=== PATIENT | male | born 1995 | race Caucasian/White ===

== ENCOUNTER 2016-04-25 21:08 | Inpatient (IN) | payer OTHER ==
[~2016-04-25] VITALS: Ht 175.3 cm; Wt 64.6 kg
[2016-04-25 22:39] LABS: BASOPHILS 0.2 % (0.0-2.0); HEMATOCRIT 44.1 % (42.0-54.0); HEMOGLOBIN 16.1 g/dL (13.5-17.5); IMMATURE GRANULOCYTES 0.1 % (0-5); LYMPHOCYTES 25.5 % (15-50); MCH 31.9 pg (26.0-34.0); MCHC 36.5 g/dL (31.0-37.0); MCV 87.5 fL (80.0-100.0); MEAN PLATELET VOLUME 10.6 fL (7.4-10.4); MONOCYTES 6.7 % (2-11); NEUTROPHILS 66.5 % (40-80); PLATELET COUNT 185 10x3/uL (130-400); RBC 5.04 10x6/uL (4.20-6.10); RDW 12.9 % (11.5-14.5); WBC 8.4 10x3/uL (4.8-10.8)
[2016-04-25 22:50] LABS: ALBUMIN 4.7 g/dL (3.4-5.0); ALKALINE PHOSPHATASE 47 U/L (46-116); ALT (SGPT) 26 U/L (10-68); CALC OSMOLALITY 282 mosm/kg (275-300); CALCIUM 9.3 mg/dL (8.5-10.1); CARBON DIOXIDE 31.5 mmol/L (21.0-32.0); CHLORIDE - SERUM 103 mmol/L (98-107); GLUCOSE 85 mg/dL (74-106); POTASSIUM - SERUM 4.2 mmol/L (3.5-5.1); PROTEIN - SERUM 7.4 g/dL (6.4-8.2); SODIUM 142 mmol/L (136-145); UREA NITROGEN 14 mg/dL (7-18); eGFR NON AFRICAN AMERICAN > 90 mL/min (90-120)
[2016-04-25 23:30] VITALS: BP 109/71
--- NOTE | 2016-04-25 23:35 | NUR ---
2335: Pt admitted from ER via STR and placed in room 2305 at this time. All monitors and alarms established.
[2016-04-25] MEDS ORDERED: PAXIL10 MG PO (23:38)
[2016-04-25 23:43] VITALS: BP 109/71; Ht 175.3 cm; Wt 64.6 kg
[2016-04-26] VITALS (25 sets, daily range): BP systolic 78–111; BP diastolic 43–80
--- NOTE | 2016-04-26 | NUR ---
0000: Admission assessment complete. Pt states he took 15 Paxil pills around 9pm last night (04/25) because his girlfriend broke up with him. Pt states he would like to have some help and agrees to transfer/admission to a [facility] facility. Pt states he is not currentley suicidal, but does not know how the night will go. Pt agrees to notify nurse if he begins having suicidal thoughts. Pt is cooperative and conversive during assessment.
--- NOTE | 2016-04-26 01:00 | NUR ---
0100: Pt up to bedside commode with steady gait. Pt states he is having stomach cramps.
--- NOTE | 2016-04-26 01:30 | NUR ---
0130: Pt up OOB with multiple BMs. Assisted pt up to commode and back to bed without incident.
--- NOTE | 2016-04-26 02:50 | NUR ---
0250: Pt resting with eyes open at this time. Pt remains oriented, conversive, and cooperative at this time.
--- NOTE | 2016-04-26 04:30 | NUR ---
0430: Pt resting with eyes closed at this time. Pt remains SR on CM 60's with SBP >100. Pt remains on RA with SPO2 97%.
--- NOTE | 2016-04-26 05:30 | NUR ---
0530: Pt continues with frequent black liquid stools. Pt up to bedside commode with steady gait. Pt remains SR 60's on CM with SBP >100. Pt remains on RA iwth SPO2 98%.
--- NOTE | 2016-04-26 06:00 | NUR ---
0600: Pt resting with eyes closed at this time.
--- NOTE | 2016-04-26 07:00 | NUR ---
REC'ED REPORT FROM OUT GOING RN
--- NOTE | 2016-04-26 08:14 | NUR ---
ASSESSMENT COMPLETE - ASSISTED PT TO BSC - PT VOICED NO CONCERNS AT THIS TIME.
--- NOTE | 2016-04-26 08:55 | NUR ---
MOTHER (MS. AUTUMN JAY) CALLED - ASKED PT'S PERMISION TO SPEAK TO HER. PT AGREED TO ALLOW THIS RN TO SPEAK TO MOTHER AND TO GIVE HER HIS PASSWORD (KITTY). PT ASKED IF SHE COULD CALL HIM - EXPLAINED THAT DUE TO HIS CONDITION OF SI THAT NO PHONE CALLS NOR VISITORS ARE ALLOW - THIS POLICY IS IN PLACE TO PROTECT THE PT FROM BEING UPSET, ETC. PT VERBALIZED UNDERSTANDING. SPOKE TO MS. JAY - STATED PT HAS BEEN IN RESIDENTAL CARE SINCE HE WAS 4 YEARS OLD FOR ANGER ISSUES. (NAMED 8 DIFFERENT [facility] PSYCHI[facility]RIC FACILITIES) MS. JAY STATED THE PT IS A 'RUNNER' - PT HAS HISTORY OF WALKING OUT OF RESIDENTIAL FACILITIES. MS JAY STATED PT USES [facility] IN [place], [place] [phone] - ASKED UNIT SEC TO CALL FOR MAR TO BE FAXED TO UPDATE PT'S MEDICATION LIST. CONTINUE POC.
--- NOTE | 2016-04-26 09:50 | NUR ---
PT RESTING WITH EYES CLOSED - RESPIRATIONS REG RATE AND RHYTHM CONT POC
--- NOTE | 2016-04-26 10:18 | NUR ---
SPOKE TO PHARMD, [facility] - WHO AGREED TO FAX OVER PT'S MAR. REC'D ONE MED PAXIL 20MG ONCE A DAY WILL ENTER INTO MAR.
[2016-04-26] MEDS ORDERED: PAXIL20 MG PO (10:22)
--- NOTE | 2016-04-26 11:00 | NUR ---
DR. PHIPPS AT BEDSIDE FOR ASSEESSMENT - INFORMED MD OF PT'S FREQUENT INPATIENT PSYCH ADMISSIONS R/T ANGER AND THE POSSIBLITY OF ELOPEMENT. ENTERED [facility] CONSULT FOR PLACEMENT.
--- NOTE | 2016-04-26 12:00 | NUR ---
EASILTY AWAKENED BY TACTILE STIMULATION.
--- NOTE | 2016-04-26 12:00 | NUR ---
PT RESTING WITH EYES CLOSED - RESPIRATION REG RATE AND RYTHM
--- NOTE | 2016-04-26 13:07 | NUR ---
SPOKE WITH [facility] - INFORMED OF DR. KRAFT'S CONSULT FOR PLACEMENT 'PT MEDICALLY STABLE'. SHAKEEL LINDSEY HAS NOT ASSESSED PT AT THIS TIME. VERIFIED POISION CONTROL HAS BEEN NOTIFIED - PER ER DOCUMENTATION - POISION CONTROL WAS NOTIFIED. PT RESTING WITH EYE CLOSED - RESPRIATIONS REG RATE AND RHYTHM. CONT. POC.
--- NOTE | 2016-04-26 14:30 | NUR ---
SET UP BATH FOR PT - PT BATHED AND TRANSFERRED TO RECLINER - PT ASKED TO TALK TO HIS MOTHER. EXPLAINED THE POLICY IS TO PROTECT PT FROM ANY OUTSIDE IRRIATION. HOWEVER; PT CAN DISCUSS THIS WITH [facility] . PT VERBALIZED UNDERSTANDING.
--- NOTE | 2016-04-26 15:00 | NUR ---
ASSESSMENT COMPLETE - PT RESTING WITH EYE CLOSED - RESPIRATION REG RATE AND RHYTHM. PT EASILTY AWAKEN BY TACTILE STIMULI.
[2016-04-26 15:45] LABS: APPEARANCE CLEAR (CLEAR); BILIRUBIN NEGATIVE (NEGATIVE); COLOR YELLOW (YELLOW); GLUCOSE NEGATIVE (NEGATIVE); KETONE NEGATIVE (NEGATIVE); LEUKOCYTE ESTERASE NEGATIVE (NEGATIVE); NITRITE NEGATIVE (NEGATIVE); PROTEIN NEGATIVE (NEGATIVE); UROBILINOGEN NORMAL (NORMAL)
[2016-04-26 15:53] LABS: UDS - AMPHET NEGATIVE QUAL (NEGATIVE); UDS - BARB NEGATIVE QUAL (NEGATIVE); UDS - BENZO NEGATIVE QUAL (NEGATIVE); UDS - COCAINE NEGATIVE QUAL (NEGATIVE); UDS - METH NEGATIVE QUAL (NEGATIVE); UDS - OPIATE NEGATIVE QUAL (NEGATIVE); UDS - PCP NEGATIVE QUAL (NEGATIVE); UDS - THC NEGATIVE QUAL (NEGATIVE)
--- NOTE | 2016-04-26 17:15 | NUR ---
PT RESTING IN BED - EYE CLOSED - RESPIRATIONS REGULAR RATE AND RHYTHM.
--- NOTE | 2016-04-26 18:43 | NUR ---
PT RESTING WITH EYES CLOSED - RESP REG RATE RHYTHM. CONT POC
--- NOTE | 2016-04-26 19:00 | NUR ---
1900: Pt awake, alert, and oriented. Pt denies pain, tingling, numbness, nausea, and/or vomitting. Pt states his stomach feels much better than previous shift. Pt denies suicidal thoughts at this time and is calm and cooperative. Pt states he will notify nurse if "anything changes." Pt remains breathing RA with RR16x with SPO2 98%. Lungs clear bilat with auscultation. MMP and no cyanosis noted. Pt S1S2 SR 60's on CM with SBP 100's and Temp 98.8 Temporal. PPPx4=bilat. ABD soft NT BSx4 active. Pt denies difficulty with elimination. SR up x2, call light in reach and pt demonstrates use. Pt remains visible from nurses station. Discussed fall risk with patient and verbalized understanding. Pt requests that RN call "mother" and allow her to visit. Pts mother called, but no answer at this time.
--- NOTE | 2016-04-26 22:45 | NUR ---
2245: Pt up OOB to chair with steady gait. Pt verbalized no needs at this time and remains cooperative.
[2016-04-27] VITALS (13 sets, daily range): BP systolic 79–106; BP diastolic 48–77
--- NOTE | 2016-04-27 00:40 | NUR ---
0040: Pt resting with eyes closed at this time HR decreased SR 49 bpm. Pt easy to arouse and HR increased to 60's. Pt verbalized no distress or needs at this time.
--- NOTE | 2016-04-27 04:00 | NUR ---
0400: Pt resting with eyes closed at this time with no c/o. Pt remains SB/SR 50-60 bpm while sleeping.
--- NOTE | 2016-04-27 18:07 | NUR ---
Is the patient Alert and Oriented? Yes 0 * How many steps to enter\\exit or inside your home? FOUR 0 * PCP NONE 0 * Pharmacy "WHO EVER ACCEPTS MY INSURANCE" "[facility]" 0 * Preadmission Environment Home with Family 0 * ADLs Independent 0 * Equipment None 0 * Other Equipment N/A 0 * List name and contact numbers for known caregivers / representatives who currently or will assist patient after discharge: SOFIE JAY- - [phone] 0 * Community resources currently utilized None 0 * Please name any agencies selected above. N/A 0 * Additional services required to return to the preadmission environment? Yes 0 * Can the patient safely return to the preadmission environment? Yes 0 * Has this patient been hospitalized within the prior 30 days at any hospital? No 0
--- NOTE | 2016-04-27 18:20 | NUR ---
[id number] CM MET W/ PATIENT AT THE BEDSIDE. HE IS ALERT AND ORIENTED. SOMEWHAT EVASIVE WHEN ANSWERING QUESTIONS. GIVES SHORT ANSWERS W/ MINIMAL INFORMATION. PATIENT STATES HE LIVES IN [place], [place] BUT DOES NOT KNOW THE ADDRESS. IT IS IN [facility]. LIVES W/ FAMILY. STATES HE HAS NO PCP. HAS NOT BEEN IN COUNSELING FOR YEARS, SINCE THE COUNSELING CENTER IN [place] BURNED DOWN. LAST HOSPITALIZATION WAS AT AGE 18 YRS. STATES HE HAS BEEN AT [facility]ULT[facility] MENTAL [facility], [facility], [facility] [employer]. "I DO NOT WANT TO GO TO [facility] BECAUSE THEY GIVE YOU TOO MUCH MEDICATION." ADVISED HIM, SHANTAL HAD SPOKEN W/ [facility] IN [place], [place]. THEY WILL ACCEPT A REFERRAL. "OKAY" SHANTAL SPOKE W/ JUN. FAXED CLINICAL FOR REVIEW. CM FOLLOWED UP W/ CB. JUN HAD TO SPEAK W/ DR JASON. REC CB FROM JUN PRITCHETT RN. PATIENT HAS BEEN ACCEPTED TO [address] JASON IS THE RECEIVING MD. SHANTAL ADVISED PRIMARY NURSE, DEYSI. SHANTAL SPOKE WITH THE PATIENT. DEYSI WILL ALSO CALL THE PATIENT'S MOTHER HE HAS REQUESTED. SHANTAL WILL ADVISE THE NURSING PROPERTY UTILIZATION MANAGER, JASMEET. PRIMARY NURSE, DEYSI, NOTIFIED DR PHIPPS.
--- NOTE | 2016-04-27 18:37 | NUR ---
IV DC'D CATH FULLY INTACT. DC INSTRUCTIONS REVIEWED WITH PT. NO QUESTIONS. AWAITING EMS FOR TRANSPORT.
--- NOTE | 2016-04-27 19:20 | NUR ---
PT REC'D PT AWAKE, ALERT, ORIENTED X 3, ON ROOM AIR UP IN RECLINER WATCHING TV, DINNER TRAY REMOVED PER REQUEST, PT CALM AND COOPERATIVE AWAITING TRANSPORT, DENIES NEEDS, URINAL EMPTIED OF 300 CC CLEAR YELLOW URINE, CURTAIN OPEN VISIBLE TO NURSES STATION.
--- NOTE | 2016-04-27 19:55 | NUR ---
[facility] HERE TO TRANSPORT PT TO [facility] IN [place], PT DISCHARGED TO THEIR CARE AT THIS TIME.
== END 2016-04-27 19:55 | disposition short-term general hospital (02) | DRG 918 ==
LOC: D.ER 21:08 → D.ICU 23:13
PROVIDERS: Emergency Medicine; ADMIT Family Medicine
DX: T43.222A Poisoning by selective serotonin reuptake inhibitors, intentional self-harm, initial encounter (principal); Z72.0 Tobacco use